=== PATIENT | male | born 1955 | race Caucasian/White ===

== ENCOUNTER 2017-03-29 11:16 | Inpatient (IN) | payer OTHER ==
[~2017-03-29] VITALS: Ht 177.8 cm; Wt 88.0 kg
--- NOTE | 2017-03-29 11:30 | NUR ---
PT BIB FAMILY C/O LOWER BACK PAIN S/P DISCECTOMY SX LAST MARCH 17, 2017, ALSO C/O NAUSEA AND VOMTING FOR A FEW DAYS. NOTED IN DISTRESS. FAMILY MEMBER AT BS FOR INFO. SEEN BY MD FOR EVAL. SAFETY AND COMFORT MEASURES PROVIDED. WILL MONITOR.
[2017-03-29] MEDS ORDERED: HYDROMORPHONE 1 MG/1 ML DISP.SYRIN ONE ×2 (11:38→13:14)
[2017-03-29] MEDS ORDERED: IV NS 0.9% 1,000 ML ONE (11:38)
--- NOTE | 2017-03-29 11:45 | NUR ---
IV ACCESS STARTED, BLOOD DRAWN FOR LABS. PT MEDICATED ORDERED.
[2017-03-29 11:57] LABS: BASOPHILS # (AUTO) 1.2 /CMM (0.0-0.2); BASOPHILS % (AUTO) 4.4 % (0.0-2.0); HEMATOCRIT 41 % (39-51); HEMOGLOBIN 13.3 g/dL (13.5-17.5); LYMPHOCYTES # (AUTO) 0.9 /CMM (0.8-4.8); LYMPHOCYTES % (AUTO) 3.5 % (20.0-44.0); MEAN CORPUSCULAR HEMOGLOBIN 30 PG (26.0-33.0); MEAN CORPUSCULAR HGB CONC 33 g/dl (31.0-36.0); MEAN CORPUSCULAR VOLUME 92 fL (80-96); MONOCYTES % (AUTO) 11.4 % (2.0-12.0); NEUTROPHILS # (AUTO) 21.1 /CMM (1.8-8.9); NEUTROPHILS % (AUTO) 80.7 % (43.0-81.0); PLATELET COUNT (AUTO) 235 /CMM (150-450); RDW COEFFICIENT OF VARIATION 12.8 (11.5-15.0); RED BLOOD CELL COUNT(AUTO) 4.43 MIL/uL (4.5-6.0); WHITE BLOOD COUNT (AUTO) 26.2 K/uL (4.3-11.0)
[2017-03-29] MEDS ORDERED: HYDROMORPHONE 1 MG/1 ML DISP.SYRIN IV ONE ×3 (12:00→17:30)
[2017-03-29] MEDS ORDERED: IV NS 0.9% 1,000 ML BAG IV ONE (12:00)
[2017-03-29 12:05] LABS: CALCIUM, SERUM 8.8 mg/dL (8.5-10.1); CREATININE 1.3 mg/dL (0.6-1.3); POTASSIUM 3.8 mmol/L (3.5-5.1)
--- NOTE | 2017-03-29 12:05 | NUR ---
PT IS UNABLE TO GIVE URINE SAMPLE AT THIS TIME.
[2017-03-29 12:12] LABS: ALBUMIN 3.6 g/dL (3.4-5.0); BILIRUBIN,DIRECT 0.1 mg/dL (0.0-0.2); BILIRUBIN,TOTAL 0.9 mg/dL (0.2-1.0); TOTAL PROTEIN, SERUM 6.9 g/dL (6.4-8.2)
--- NOTE | 2017-03-29 13:30 | NUR ---
XRAY DONE AT BS.
--- NOTE | 2017-03-29 13:44 | NUR ---
PAGED DR PATEL FOR ADMISSION
[2017-03-29] MEDS ORDERED: LEVOFLOXACIN (750 MG) 750 MG TABLET ONE (13:59)
[2017-03-29] MEDS ORDERED: IV SET PRIMARY 1 EA INFUS.SET MC ONE (14:00)
[2017-03-29] MEDS ORDERED: CEFTRIAXONE 1GM BAG (ER ONLY) 50 ML IV ONE (14:00)
[2017-03-29] MEDS ORDERED: CEFTRIAXONE 500 MG VIAL IV ONE (14:00)
[2017-03-29] MEDS ORDERED: LEVOFLOXACIN (750 MG) 750 MG TABLET PO SCH (14:00)
[2017-03-29] MEDS ORDERED: VENL75TA4 PO (14:08)
[2017-03-29] MEDS ORDERED: SIMV10TA6 PO (14:08)
[2017-03-29] MEDS ORDERED: PROP150T2 PO (14:08)
[2017-03-29] MEDS ORDERED: SERT100T PO (14:08)
[2017-03-29] MEDS ORDERED: CEFTRIAXONE 1 G in IV D5W 50 ML IV ONE (14:30)
--- NOTE | 2017-03-29 14:33 | NUR ---
Shreya reynolds in [facility] - 03/29/17 at 1433 by JASSI [id number] TELE
--- NOTE | 2017-03-29 14:33 | NUR ---
M/S 201
--- NOTE | 2017-03-29 14:54 | NUR ---
Report given to TIMO Guerin for [facility] MS 201
--- NOTE | 2017-03-29 15:12 | NUR ---
MS RN OPENING RECEIVED PATIENT A/OX4 DENIES SOB, DIFFICULTY BREATHING. STATES PAIN IS BETTER 04/04 AT THIS TIME BECAUSE HE WAS JUST MOVED. PATIENT AT BEDSIDE. MD PATEL AWARE OF ADMISSION. ALL NEEDS IN REACH, BED LOWERED AND LOCKED, RAILS UPX3 FOR SAFETY AND WILL ROUND Q2H OR LESS PER NEEDS.
[2017-03-29 15:15] VITALS: BP 115/55
--- NOTE | 2017-03-29 15:30 | NUR ---
MS RN NOTES PATIENT SLIGHT ELEVATED TEMP 99.3 ICE APPLIED AND REMOVED BLANKETS.
[2017-03-29 16:00] VITALS: BP 119/55
--- NOTE | 2017-03-29 16:09 | NUR ---
MS RN NOTES PATIENT IS IN TOO MUCH PAIN TO TURN AND VISUALIZE BACK SURGICAL SITE. WILL MEDICATE ORDERED ONCE MD ADMITS AND THEN ATTEMPT TO TURN PATIENT
[2017-03-29] MEDS ORDERED: MAGNESIUM HYDROXIDE 30 ML UDC PO PRN (16:30)
[2017-03-29] MEDS ORDERED: MAG HYDROX/AL HYDROX/SIMETH 30 ML UDC PO PRN (16:30)
[2017-03-29] MEDS ORDERED: ACETAMINOPHEN 325 MG TABLET PO PRN (16:30)
[2017-03-29] MEDS ORDERED: Z GUARD REMEDY 2 OZ OINT TP PRN (16:30)
--- NOTE | 2017-03-29 16:32 | NUR ---
MS RN NOTES PER MD PATEL ORDER A ONE TIME DOSE OF DILAUDID IV 1MG TO BE GIVEN NO SOONER THAN 1730
[2017-03-29] MEDS: PROPAFENONE HCL 150 MG TABLET PO SCH ×2 (17:19→21:00)
[2017-03-29] MEDS: ONDANSETRON HCL/PF 4 MG/2 ML VIAL IVP PRN (17:45)
[2017-03-29] MEDS: HYDROCODONE/APAP 5/325MG 1 EACH TABLET PO PRN (18:29)
--- NOTE | 2017-03-29 18:39 | NUR ---
MS RN NOTES MESSAGE TO DR PATEL PER PATIENT ASTRIDID DID NOT TOUCH HIM AND PATIENT UNABLE. PER MD HE WILL SEE PATIENT
--- NOTE | 2017-03-29 19:05 | NUR ---
MS RN CLOSING PATIENT DENIES SOB, DIFFICULTY BREATHING AND PAIN IS STILL UNCONTROLLED. MD AWARE AND WILL SEE PATIENT. IN THE MEANTIME ASSISTED WITH MORE NON PHARM MEASURES, GAVE ICE TO PATIENT BACK, ASSISTED WITH REPOSITIONING, TURNING LIGHTING DOWN, DISTRACTION AND LETTING PATIENT REST. CARE ENDORSED TO TIMO JIMENEZ AND UPDATED ON CARE PLAN. PATIENT WITH CALL LIGHT IN REACH, BED LOWERED AND LOCKED, RAILS UPX3 FOR SAFETY AND CARE GIVEN TO BARBARA GREENWOOD.
--- NOTE | 2017-03-29 19:10 | NUR ---
MS RN NOTES MD VISIT SEEN BY DR PATEL,WITH NEW ORDERS NOTED AND CARRIED OUT.
--- NOTE | 2017-03-29 19:20 | NUR ---
MS RN NOTES RECEIVED ON BED A/O X4,BREATHING REGULAR,NOT IN ANT FORM OF RESPIRATORY DISTRESS.O2 IN USED 2L/NC TO KEEP O2 SAT ABOVE 90%.SALINE LOCK INTACT AND PATENT ON LEFT HAND.S/P BACK SURGERY 2 WEEKS AGO.CLAIMED HE'S STILL IN PAIN 9/10 ON PAIN SCALE.SENT MESSAGE TO DR PATEL WITH ORDER TO INCREASE DILAUDID 2MG IV Q 4HOURS PRN FOR SEVERE PAIN NOTED AND CARRIED OUT
[2017-03-29] MEDS ORDERED: HYDROMORPHONE INJ 2 MG/ML DISP.SYRIN ONE (19:40)
[2017-03-29] MEDS: HYDROMORPHONE INJ 2 MG/ML DISP.SYRIN IV PRN (19:46)
--- NOTE | 2017-03-29 19:46 | NUR ---
MS RN NOTES PAIN MANAGEMENT NORCO IS NOT EFFECTIVE AN GIVEN AN HOUR AGO.MEDICATED WITH DILAUDID 2MG IVP ORDERED.
--- NOTE | 2017-03-29 19:50 | NUR ---
MS RN NOTES WENT DOWN BY BED TO RADIOLOGY FOR CT LUMBAR SPINE WITHOUT CONTRAST,REASON POST OP BACK PAIN
--- NOTE | 2017-03-29 19:55 | NUR ---
MS RN NOTES FAMILY MEMBER AT BEDSIDE.
[2017-03-29 20:00] VITALS: BP 112/67
--- NOTE | 2017-03-29 20:00 | NUR ---
MS RN NOTES CAME BACK FROM CT IN STABLE CONDITION.
--- NOTE | 2017-03-29 21:00 | NUR ---
MS RN NOTES DUE RYTHMOL 150MG PO FOR BP,HEART RATE HELD FOR LOW BP 112/67,HEART RATE 98. SAID TO HOLD TO THE CHOLESTEROL PILL.
[2017-03-29] MEDS: SIMVASTATIN 10 MG TABLET PO SCH (21:27)
[2017-03-29] MEDS ORDERED: DEXAMETHASONE SOD PHOSPHATE 10 MG/ML VIAL IV STA (22:13)
[2017-03-29] MEDS ORDERED: CEFTRIAXONE 2 G in IV D5W 100 ML IV SCH (22:30)
[2017-03-29] MEDS ORDERED: GABAPENTIN 300 MG CAPSULE ONE (22:51)
[2017-03-29] MEDS ORDERED: DEXAMETHASONE SOD PHOSPHATE 10 MG/ML VIAL ONE (22:51)
[2017-03-29] MEDS ORDERED: IV NS 0.9% 250 ML IV ONE (22:52)
[2017-03-29] MEDS ORDERED: CEFTRIAXONE 1 G VIAL ONE (22:52)
[2017-03-29] MEDS ORDERED: IV SET PRIMARY PUMP SET 1 EA INFUS.SET MC ONE (22:52)
[2017-03-29] MEDS ORDERED: SECONDARY IV SET 1 EA INFUS.SET MC ONE (22:52)
[2017-03-29] MEDS ORDERED: IV D5W 100 ML IV ONE (22:53)
[2017-03-29] MEDS: ZOLPIDEM TARTRATE 5 MG TABLET PO PRN (23:03)
[2017-03-29] MEDS: GABAPENTIN 300 MG CAPSULE PO SCH (23:03)
--- NOTE | 2017-03-29 23:03 | NUR ---
MS RN NOTES C/O INSOMNIA,AMBIEN 5MG PO GIVEN ORDERED.
--- NOTE | 2017-03-29 23:03 | NUR ---
MS RN NOTES STARTED ON NEURONTIN 300MG PO ORDERED.
--- NOTE | 2017-03-29 23:03 | NUR ---
MS RN NOTES GIVEN DECADRON 10MG IV STAT ORDER ONCE BY DR GUDELIA LORENZANA.
--- NOTE | 2017-03-29 23:33 | NUR ---
MS RN NOTES ROCEPHIN 2GM IV NON ADMIN,VERIFIED WITH GUDELIA LORENZANA DNP,WILL START TOMORROW.ROCEPHIN 1 GM IV ALREADY ADMINISTERED IN ER AT 1410.
--- NOTE | 2017-03-30 01:00 | NUR ---
MS RN NOTES SLEEPING,KEPT WARM AND COMFORTABLE.
[2017-03-30] MEDS ORDERED: HYDROMORPHONE INJ 2 MG/ML DISP.SYRIN ONE (03:44)
[2017-03-30] MEDS: HYDROMORPHONE INJ 2 MG/ML DISP.SYRIN IV PRN ×3 (03:50→13:19)
--- NOTE | 2017-03-30 03:50 | NUR ---
MS RN NOTES PAIN MANAGEMENT C/O LOWER BACK PAIN,MEDICATED WITH DILAUDID 2MG IVP ORDERED FOR SEVERE PAIN
--- NOTE | 2017-03-30 06:13 | NUR ---
MS RN NOTES ALREADY VOIDED PER URINAL ABOUT 550ML,URINE FOR URINALYSIS COLLECTED,WILL SEND TO LAB.PAIN MANAGEMENT EFFECTIVE.CT LUMBAR WITHOUT CONTRAST DONE WITH RESULT.GUDELIA LORENZANA DNP ALREADY CHECKED ON IT.ROCEPHIN 2GM IVPB TO START TODAY.IN NO ACUTE DISTRESS,AFEBRILE.CALL LIGHT IN REACH,NEEDS ATTENDED.WILL ENDORSE TO DAY NURSE FOR [place].
[2017-03-30 06:53] LABS: HEMATOCRIT 38 % (39-51); HEMOGLOBIN 12.6 g/dL (13.5-17.5); LYMPHOCYTES # (AUTO) 0.3 /CMM (0.8-4.8); LYMPHOCYTES % (AUTO) 1.2 % (20.0-44.0); MEAN CORPUSCULAR HEMOGLOBIN 31 PG (26.0-33.0); MEAN CORPUSCULAR HGB CONC 33 g/dl (31.0-36.0); MEAN CORPUSCULAR VOLUME 93 fL (80-96); MONOCYTES # (AUTO) 0.1 /CMM (0.1-1.30); MONOCYTES % (AUTO) 0.5 % (2.0-12.0); NEUTROPHILS % (AUTO) 98.3 % (43.0-81.0); PLATELET COUNT (AUTO) 195 /CMM (150-450); RDW COEFFICIENT OF VARIATION 13.6 (11.5-15.0); RED BLOOD CELL COUNT(AUTO) 4.07 MIL/uL (4.5-6.0); WHITE BLOOD COUNT (AUTO) 22.4 K/uL (4.3-11.0)
--- NOTE | 2017-03-30 07:00 | NUR ---
MS RN OPENING RECEIVED PATIENT A/OX4 STATES CONSTANT RADIATING LOWER BACK PAIN WHICH IS A LITTLE BETTER PER PATIENT WITH PAIN MANAGEMENT. PATIENT AWARE NEXT PAIN MEDICATION IS DUE AT 0750. ASSISTED PATIENT TO REPOSITION FOR INCREASED COMFORT AND ICE PRN FOR PAIN. ALL NEEDS IN REACH, OXYGEN ON FOR COMFORT WILL RECHECK ROOM AIR SAT TODAY. PATIENT STATES NO OTHER NEEDS AT THIS TIME. WITH CALL LIGHT IN REACH, BED LOWERED AND LOCKED, RAILS UPX3 FOR SAFETY WITH BED ALARM ON.
[2017-03-30 07:15] LABS: CALCIUM, SERUM 8.4 mg/dL (8.5-10.1); CREATININE 0.9 mg/dL (0.6-1.3); PHOSPHORUS 2.2 mg/dL (2.5-4.9)
[2017-03-30 08:00] VITALS: BP 114/67
--- NOTE | 2017-03-30 08:00 | NUR ---
MS RN NOTES PATIENT STATES NAUSEA WHEN HE EATS. PRN ZOFRAN GIVEN
[2017-03-30] MEDS: GABAPENTIN 300 MG CAPSULE PO SCH ×3 (08:02→16:02)
[2017-03-30] MEDS: SERTRALINE HCL 50 MG TABLET PO SCH (08:02)
[2017-03-30] MEDS: VENLAFAXINE 37.5 MG TABLET PO SCH (08:02)
[2017-03-30] MEDS: PROPAFENONE HCL 150 MG TABLET PO SCH ×4 (08:05→21:53)
[2017-03-30 08:06] VITALS: BP 114/67
[2017-03-30] MEDS: ONDANSETRON HCL/PF 4 MG/2 ML VIAL IVP PRN ×2 (08:08→13:41)
--- NOTE | 2017-03-30 09:45 | NUR ---
MS RN NOTES PATIENT RESTING COMFORTABLY. AWAKE TO LIGHT TOUCH
--- NOTE | 2017-03-30 10:58 | NUR ---
WOUND CARE CONSULT: PT SLEEPING AT THIS TIME AND PT'S (AT BEDSIDE) REFUSED WOUND/SKIN ASSESSMENT. DEFER TO MD. RECOMMEND SURGICAL CONSULT. WILL SEE PRN.
--- NOTE | 2017-03-30 11:06 | NUR ---
MS RN NOTES PATIENT RESTING COMFORTABLY. AWAKE TO LIGHT TOUCH. AT BEDSIDE
--- NOTE | 2017-03-30 11:30 | NUR ---
MS RN NOTES ASSISTING PATIENT TO TURN AND OFFLOAD TO PROTECT SKIN. PILLOWS GIVEN. PATIENT INSISTING TO STAY IN POSITION OF COMFORT. CONTINUING TO TRY AND REPOSITION PATIENT TO OFFLOAD
--- NOTE | 2017-03-30 12:11 | NUR ---
MS RN NOTES WOUND CULTURE OBTAINED AND URINE SAMPLE COLLECTED
[2017-03-30] MEDS ORDERED: K PHOS NEUTRAL 250 MG TABLET PO ONE (12:30)
--- NOTE | 2017-03-30 14:20 | NUR ---
ms rn notes md at bedside. ok to order ivf ns continuous 75/hr
[2017-03-30] MEDS ORDERED: IV NS 0.9% 1,000 ML IV PRN (14:30)
[2017-03-30] MEDS ORDERED: IV NS 0.9% 1,000 ML BAG IV PRN (14:30)
[2017-03-30] MEDS: CEFTRIAXONE 2 G in IV D5W 100 ML IV SCH (14:37)
[2017-03-30] MEDS: IV NS 0.9% 1,000 ML IV PRN (14:47)
--- NOTE | 2017-03-30 14:55 | NUR ---
ms rn notes per md cornelia dominguez to order phenergan im 50mg q8h prn for nausea as zofran is not working too well for patient
[2017-03-30] MEDS ORDERED: PROMETHAZINE HCL 50 MG/ML AMPUL IM PRN (15:00)
--- NOTE | 2017-03-30 15:10 | NUR ---
ms rn notes patient resting well and does not want any antiemetic at this time. ivf running as ordered
--- NOTE | 2017-03-30 15:26 | NUR ---
MS RN NOTES DR NGUYEN AT BEDSIDE. PER MD ORDER MRI LSPINE WITH CONTRAST
[2017-03-30 15:53] LABS: APPEARANCE,URINE SL CLOUDY (CLEAR); BILIRUBIN,URINE NEGATIVE (NEGATIVE); BLOOD, URINE NEGATIVE Ery/uL (NEGATIVE); COLOR,URINE YELLOW (YELLOW); KETONES,URINE NEGATIVE (NEGATIVE); LEUKOCYTE ESTERASE ,URINE NEGATIVE (NEGATIVE); NITRITE, URINE NEGATIVE (NEGATIVE); PROTEIN,URINE TRACE mg/dl (NEGATIVE); UGLUCOSE NEGATIVE (NEGATIVE); UROBILINOGEN,URINE 0.2 EU/dL (0.2)
--- NOTE | 2017-03-30 15:53 | NUR ---
TEXTED DR. QUINTERO FOR MRI APPROVAL.
[2017-03-30 16:00] VITALS: BP 112/68
[2017-03-30 16:01] LABS: BACTERIA,URINE None seen /HPF (None Seen); RBC,URINE 0-2 /HPF (0-2); SQUAMOUS EPITHELIAL CELL,UR Rare /HPF (None Seen); WBC,URINE 0-2 /HPF (0-3)
--- NOTE | 2017-03-30 16:30 | NUR ---
MS RN NOTES PATIENT IS SLEEPING AWAKE TO LIGHT TOUCH. NO S/S DISTRESS
--- NOTE | 2017-03-30 18:54 | NUR ---
MS RN CLOSING PATIENT STABLE PAIN CONTROLLED WITH PRN MEDICATIONS. NAUSEA CONTROLLED WITH PRN MEDICATIONS. PATIENT IS RESTING WELL AT THIS TIME NO COMPLICATIONS. PATIENT WITH ALL NEEDS IN REACH, BED LOWERED AND LOCKED, RAILS UPX3 FOR SAFETY AND WILL ROUND Q2H OR LESS PER NEEDS. CARE ENDORSED TO TIMO SANCHEZ
--- NOTE | 2017-03-30 19:15 | NUR ---
MS RN NOTES RECEIVED PT IN BED, ASLEEP AT THIS TIME, AROUSES EASILY. A/O X 4. VERBALLY RESPONSIVE. NO DISTRESS, NO SOB NOTED AT THIS TIME. RESPIRATION IS EVEN AND UNLABORED. ABDOMEN IS SOFT AND NON DISTENDED. NO C/O N/V AT THIS TIME. IV SITE ON LEFT HAND INTACT AND PATENT, NO S/S OF INFILTRATION NOTED. IVF INFUSING WELL. NO C/O PAIN OR DISCOMFORT AT THIS TIME. ALL NEEDS ATTENDED. KEPT COMFORTABLE. CALL LIGHT WITHIN REACH. WILL CONTINUE TO MONITOR.
[2017-03-30 20:00] VITALS: BP 122/63
[2017-03-30] MEDS: SIMVASTATIN 10 MG TABLET PO SCH (21:53)
[2017-03-30 22:00] VITALS: BP 122/63
--- NOTE | 2017-03-31 01:11 | NUR ---
LEFT HAND IV LINE LEAKING, REMOVED PRESSURE APPLIED, NO BLEEDING NOTED AT THIS TIME. INSERTED IV ON LEFT HAND 20 G X 1 ATTEMPT, WITH GOOD VENOUS RETURN, PT NICHOLAS WELL.
[2017-03-31] MEDS: IV NS 0.9% 1,000 ML IV PRN (04:02)
--- NOTE | 2017-03-31 06:10 | NUR ---
ENDORSED ACCORDINGLY TO TIMO AGUIRRE FOR [facility].
--- NOTE | 2017-03-31 06:16 | NUR ---
MS RN NOTES PT IN BED, RESTING COMFORTABLY AT THIS TIME, AROUSES EASILY. A/O X 4. VERBALLY RESPONSIVE. NO DISTRESS, NO SOB NOTED AT THIS TIME. RESPIRATION IS EVEN AND UNLABORED. ABDOMEN IS SOFT AND NON DISTENDED. NO C/O N/V AT THIS TIME. IV SITE ON LEFT HAND G#20 INTACT AND PATENT, NO S/S OF INFILTRATION NOTED. IVF INFUSING WELL. NO C/O PAIN OR DISCOMFORT AT THIS TIME. ALL NEEDS ATTENDED AND MET. KEPT COMFORTABLE. SAFETY PRECAUTIONS OBSERVED. CALL LIGHT WITHIN REACH. WILL CONTINUE TO MONITOR.
[2017-03-31 07:18] LABS: BASOPHILS % (AUTO) 0.1 % (0.0-2.0); EOSINOPHILS % (AUTO) 0.1 % (0.0-6.0); HEMATOCRIT 34 % (39-51); HEMOGLOBIN 11.6 g/dL (13.5-17.5); LYMPHOCYTES # (AUTO) 0.6 /CMM (0.8-4.8); MEAN CORPUSCULAR HEMOGLOBIN 31 PG (26.0-33.0); MEAN CORPUSCULAR HGB CONC 34 g/dl (31.0-36.0); MEAN CORPUSCULAR VOLUME 92 fL (80-96); MONOCYTES # (AUTO) 0.4 /CMM (0.1-1.30); MONOCYTES % (AUTO) 2.8 % (2.0-12.0); NEUTROPHILS # (AUTO) 14.2 /CMM (1.8-8.9); PLATELET COUNT (AUTO) 198 /CMM (150-450); RDW COEFFICIENT OF VARIATION 13.4 (11.5-15.0); WHITE BLOOD COUNT (AUTO) 15.3 K/uL (4.3-11.0)
--- NOTE | 2017-03-31 07:25 | NUR ---
MS RN OPENING NOTES PATIENT RECEIVED ASLEEP IN BED, EASILY AWAKENS. A/O X 4, NO C/O PAIN OR DISCOMFORTS AT THIS TIME. ON ROOM AIR, RESPIRATION IS EVEN AND UNLABORED. ABDOMEN IS SOFT AND NON DISTENDED. NO C/O N/V AT THIS TIME. IV ACCESS ON LEFT HAND G#20 INTACT AND PATENT WITH IVF OF NS @ 75ML/HR INFUSING WELL, NO S/S OF INFILTRATION OR PHLEBITIS NOTED. BED IN LOW POSITION AND LOCKED. CALL LIGHT WITHIN REACH. WILL MAINTAIN ALL SAFETY MEASURES. WILL CONTINUE TO MONITOR ACCORDINGLY.
[2017-03-31 07:30] LABS: CALCIUM, SERUM 8.3 mg/dL (8.5-10.1); CREATININE 0.7 mg/dL (0.6-1.3); PHOSPHORUS 1.9 mg/dL (2.5-4.9); POTASSIUM 4.1 mmol/L (3.5-5.1)
[2017-03-31 08:00] VITALS: BP_SYST 123; BP_DIAS 74; BP_DIAS 92
--- NOTE | 2017-03-31 08:00 | NUR ---
RN NOTES CALLED AND SPOKE TO ANIN OF RADIOLOGY DEPARTMENT AND ASKED WHETHER ITS OK TO GIVE PT ALL HIS MORNING MEDICATION EVEN THOUGH HE'S NPO AND GOING FOR MRI OF SPINE. HE SAID IT'S OK TO GIVE.
[2017-03-31] MEDS: GABAPENTIN 300 MG CAPSULE PO SCH ×3 (08:29→17:03)
[2017-03-31] MEDS: PROPAFENONE HCL 150 MG TABLET PO SCH ×4 (08:29→21:20)
[2017-03-31] MEDS: VENLAFAXINE 37.5 MG TABLET PO SCH (08:29)
[2017-03-31] MEDS: SERTRALINE HCL 50 MG TABLET PO SCH (08:29)
[2017-03-31] MEDS: HYDROMORPHONE INJ 2 MG/ML DISP.SYRIN IV PRN ×2 (09:16→13:21)
--- NOTE | 2017-03-31 09:20 | NUR ---
RN NOTES PATIENT WENT FOR MRI OF SPINE VIA WHEELCHAIR.
--- NOTE | 2017-03-31 10:06 | NUR ---
RN NOTES PATIENT CAME BACK FROM MRI OF SPINE BUT RADIOLOGIST SAID THAT SHE'S UN-ABLE TO COMPLETE THE TEST BEC. PT'S WAS ON A LOT OF PAIN. SHE SAID THAT SHE WILL COMPLETE THE TEST AFTER LUNCH AFTER GIVING PAIN MEDICATION. WILL CONTINUE TO MONITOR.
--- NOTE | 2017-03-31 11:08 | NUR ---
RN NOTES PATIENT MOVED FROM ROOM 200 TO ROOM 204-1. WILL CONTINUE TO MONITOR
--- NOTE | 2017-03-31 11:21 | NUR ---
RN NOTES SEEN AND EVALUATED BY DR PATEL WITH ORDER TO DECREASE IVF OF NS @ 75ML/HR TO 50 ML/HR. ALL ABNORMAL BLOOD LEVELS MADE AWARE. WILL CONTINUE TO MONITOR.
[2017-03-31] MEDS ORDERED: K PHOS NEUTRAL 250 MG TABLET PO ONE (11:30)
[2017-03-31] MEDS: AMPICILLIN SODIUM 2 GM in IV NS 0.9% 100 ML IV SCH ×2 (13:42→17:03)
--- NOTE | 2017-03-31 14:04 | NUR ---
RN NOTES PATIENT WENT DOWN AGAIN TO RADIOLOGY DEPT VIA WHEEL CHAIR TO COMPLETE MRI OF SPINE THAT WASN'T COMPLETED THIS MORNING. HE WAS ACCOMPANIED BY RADIOLOGIST AND .
[2017-03-31] MEDS ORDERED: SECONDARY IV SET 1 EA INFUS.SET MC ONE ×2 (14:15→15:08)
--- NOTE | 2017-03-31 14:38 | NUR ---
RN NOTES PATIENT CAME BACK FROM MRI OF SPINE AND ABLE TO COMPLETE THE EXAMINATION. WILL FOLLOW-UP RESULTS.
[2017-03-31] MEDS: CEFTRIAXONE 2 G in IV D5W 100 ML IV SCH (15:33)
[2017-03-31 16:00] VITALS: BP 116/77
[2017-03-31] MEDS ORDERED: GADOVERSETAMIDE 5 MMOL/10 ML VIAL IJ ONE (17:09)
--- NOTE | 2017-03-31 19:15 | NUR ---
MS RN NOTES RECEIVED PT IN BED, AWAKE, WATCHING TV AT THIS TIME. A/O X 4. VERBALLY RESPONSIVE. NO DISTRESS, NO SOB NOTED AT THIS TIME. RESPIRATION IS EVEN AND UNLABORED. ABDOMEN IS SOFT AND NON DISTENDED. NO C/O N/V AT THIS TIME. IV SITE ON LEFT HAND INTACT AND PATENT, NO S/S OF INFILTRATION NOTED. IVF INFUSING WELL. NO C/O PAIN OR DISCOMFORT AT THIS TIME. ALL NEEDS ATTENDED. KEPT COMFORTABLE. CALL LIGHT WITHIN REACH. WILL CONTINUE TO MONITOR.
--- NOTE | 2017-03-31 19:16 | NUR ---
MS RN CLOSING NOTES PATIENT RESTING IN BED A/O X 4, NO SIGNIFICANT CHANGES IN STATUS NOTED DURING SHIFT. VISITED BY FAMILY DURING THE DAY. ALL NEEDS AND CARE PROVIDED WELL. MAINTAINED ON ROOM AIR, NO SOB NOTED. ABDOMEN IS SOFT AND NON DISTENDED, NO C/O N/V AT THIS TIME. IV ACCESS ON LEFT HAND G#20 INTACT AND PATENT WITH IVF OF NS @ 50ML/HR INFUSING WELL, NO S/S OF INFILTRATION OR PHLEBITIS NOTED. BED IN LOW POSITION AND LOCKED. CALL LIGHT WITHIN REACH. ALL SAFETY MEASURES MAINTAINED. ENDORSED TO SOFTWARE PROJECT ENGINEER NURSE FOR [facility].
[2017-03-31 20:00] VITALS: BP 120/61
[2017-03-31] MEDS: SIMVASTATIN 10 MG TABLET PO SCH (21:20)
[2017-03-31 22:00] VITALS: BP 120/61
[2017-04-01] MEDS: AMPICILLIN SODIUM 2 GM in IV NS 0.9% 100 ML IV SCH ×5 (00:40→23:24)
[2017-04-01] MEDS: HYDROMORPHONE INJ 2 MG/ML DISP.SYRIN IV PRN ×2 (03:49→18:39)
[2017-04-01] MEDS: IV NS 0.9% 1,000 ML IV PRN (06:35)
--- NOTE | 2017-04-01 07:04 | NUR ---
MS RN NOTES PT IN BED, RESTING COMFORTABLY AT THIS TIME, AROUSES EASILY. A/O X 4. VERBALLY RESPONSIVE. NO DISTRESS, NO SOB NOTED AT THIS TIME. RESPIRATION IS EVEN AND UNLABORED. ABDOMEN IS SOFT AND NON DISTENDED. NO C/O N/V AT THIS TIME. IV SITE ON LEFT HAND G#20 INTACT AND PATENT, NO S/S OF INFILTRATION NOTED. IVF INFUSING WELL. NO C/O PAIN OR DISCOMFORT AT THIS TIME. ALL NEEDS ATTENDED AND MET. KEPT COMFORTABLE. SAFETY PRECAUTIONS OBSERVED. CALL LIGHT WITHIN REACH. WILL ENDORSE TO NEXT SHIFT FOR [facility].
--- NOTE | 2017-04-01 07:12 | NUR ---
MS RN OPENING NOTES PATIENT RECEIVED AWAKE IN BED IN NO ACUTE SIGNS OF DISTRESS. A/O X 4, NO C/O PAIN, N & V AT THIS TIME. ON ROOM AIR, RESPIRATION IS EVEN AND UNLABORED. IV ACCESS ON LEFT HAND G#20 INTACT AND PATENT WITH IVF OF NS @ 50ML/HR INFUSING WELL, NO S/S OF INFILTRATION NOTED. BED IN LOW POSITION AND LOCKED. CALL LIGHT WITHIN REACH. WILL MAINTAIN ALL SAFETY MEASURES AND WILL CONTINUE TO MONITOR PT ACCORDINGLY
[2017-04-01 08:00] VITALS: BP 126/79
[2017-04-01] MEDS: PROPAFENONE HCL 150 MG TABLET PO SCH ×4 (08:33→23:24)
[2017-04-01] MEDS: GABAPENTIN 300 MG CAPSULE PO SCH ×3 (08:34→17:03)
[2017-04-01] MEDS: SERTRALINE HCL 50 MG TABLET PO SCH (08:34)
[2017-04-01] MEDS: VENLAFAXINE 37.5 MG TABLET PO SCH (08:34)
[2017-04-01 10:11] LABS: BASOPHILS % (AUTO) 0.4 % (0.0-2.0); EOSINOPHILS # (AUTO) 0.1 /CMM (0.0-0.7); EOSINOPHILS % (AUTO) 1.3 % (0.0-6.0); HEMATOCRIT 33 % (39-51); HEMOGLOBIN 11.1 g/dL (13.5-17.5); LYMPHOCYTES # (AUTO) 0.9 /CMM (0.8-4.8); LYMPHOCYTES % (AUTO) 9.8 % (20.0-44.0); MEAN CORPUSCULAR HEMOGLOBIN 31 PG (26.0-33.0); MEAN CORPUSCULAR HGB CONC 34 g/dl (31.0-36.0); MEAN CORPUSCULAR VOLUME 91 fL (80-96); MONOCYTES # (AUTO) 0.5 /CMM (0.1-1.30); MONOCYTES % (AUTO) 5.5 % (2.0-12.0); PLATELET COUNT (AUTO) 213 /CMM (150-450); RDW COEFFICIENT OF VARIATION 13.6 (11.5-15.0); RED BLOOD CELL COUNT(AUTO) 3.59 MIL/uL (4.5-6.0); WHITE BLOOD COUNT (AUTO) 9.6 K/uL (4.3-11.0)
[2017-04-01] MEDS: HYDROCODONE/APAP 5/325MG 1 EACH TABLET PO PRN (10:16)
--- NOTE | 2017-04-01 10:16 | NUR ---
RN NOTES PATIENT COMPLAINTS OF HEADACHE WITH INTENSITY OF 6/10 AFTER AMBULATING WITH PT. NORCO 5/325MG GIVEN. WILL MONITOR EFFECTIVENESS OF MED.
[2017-04-01 10:17] LABS: CREATININE 0.8 mg/dL (0.6-1.3); POTASSIUM 3.5 mmol/L (3.5-5.1)
--- NOTE | 2017-04-01 11:50 | NUR ---
RN NOTES DR PATEL SEEN AND VISITED PT. INFORMED ME THAT DR YARITZA NGUYEN SHOULD BE CONTACTED REGARDING PT'S MRI RESULTS. CALLED CLINIC OF DR NGUYEN AND SPOKE TO ADVANCE AGENT TRISH COOPER THAT SHE FORWARDED THE RESULTS ALREADY TO DR NGUYEN. PT AND MADE AWARE.
[2017-04-01] MEDS ORDERED: GADOVERSETAMIDE 5 MMOL/10 ML VIAL IJ ONE (12:02)
--- NOTE | 2017-04-01 13:33 | NUR ---
RN NOTES DR CHEEMA CAME AND EVALUATED PT, SAME EXPLAINED MRI RESULTS TO PATIENT AND PT VERBALIZED UNDERSTANDING.
[2017-04-01] MEDS: CEFTRIAXONE 2 G in IV D5W 100 ML IV SCH (14:53)
[2017-04-01] MEDS ORDERED: K PHOS NEUTRAL 250 MG TABLET PO ONE (15:30)
--- NOTE | 2017-04-01 15:35 | NUR ---
RN NOTES MD AWARE OF PT'S LOW LEVEL OF PHOSPHOROUS 2.2, ORDERED NEUTRA PHOS K TAB 500MG. ORDERED CARRIED OUT.
[2017-04-01 16:00] VITALS: BP 124/81
--- NOTE | 2017-04-01 19:05 | NUR ---
MS RN CLOSING NOTES PATIENT AWAKE AND WATCHING TV IN BED. A/O X 4, VERBALLY RESPONSIVE WITH C/O PAIN ON LOWER BACK WITH INTENSITY OF 9/10, PRN DILAUDID 2MG IVP GIVEN. ALL NEEDS AND CARE PROVIDED WELL. ON ROOM AIR, BREATHING EVEN WITH NO SOB NOTED. ABDOMEN IS SOFT AND NON DISTENDED, NO C/O N/V DURING THE DAY. IV ACCESS ON LEFT HAND G#20 INTACT AND PATENT WITH IVF OF NS @ 50ML/HR INFUSING WELL, NO S/S OF INFILTRATION NOTED. BED IN LOW POSITION AND LOCKED. CALL LIGHT WITHIN REACH. ALL SAFETY MEASURES MAINTAINED. WILL ENDORSED TO METAL WINDOW SCREEN ASSEMBLER NURSE FOR [facility].
[2017-04-01 20:00] VITALS: BP 117/82
--- NOTE | 2017-04-01 20:20 | NUR ---
MSRN SLEEPING APPEARS COMFORTABLE. PROVIDED QUIET ENVI.
[2017-04-01] MEDS: SIMVASTATIN 10 MG TABLET PO SCH (23:24)
[2017-04-01] MEDS: ZOLPIDEM TARTRATE 5 MG TABLET PO PRN (23:32)
--- NOTE | 2017-04-01 23:47 | NUR ---
MSRN LATE DUE MEDS ADMINISTERED, JUST WOKE UP. BRP, VOIDED FREELY. LOWER BACK PAIN TOLERABLE FOR NOW. REQUESTED TO HAVE AMBIEN . GIVEN. TRYING TO GO BACK TO SLEEP.
--- NOTE | 2017-04-02 06:10 | NUR ---
MSRN IV OUT, RESTARTED 24 GAUGE ON LEFT FA WITH GOOD BLOOD RETURN. IVF CONTINUED. AMPICILLIN ON PROGRESS.
[2017-04-02 06:32] LABS: BASOPHILS # (AUTO) 0.1 /CMM (0.0-0.2); BASOPHILS % (AUTO) 0.8 % (0.0-2.0); EOSINOPHILS # (AUTO) 0.3 /CMM (0.0-0.7); EOSINOPHILS % (AUTO) 3.4 % (0.0-6.0); HEMATOCRIT 35 % (39-51); HEMOGLOBIN 11.8 g/dL (13.5-17.5); LYMPHOCYTES # (AUTO) 1.4 /CMM (0.8-4.8); LYMPHOCYTES % (AUTO) 17.9 % (20.0-44.0); MEAN CORPUSCULAR HEMOGLOBIN 31 PG (26.0-33.0); MEAN CORPUSCULAR HGB CONC 34 g/dl (31.0-36.0); MEAN CORPUSCULAR VOLUME 92 fL (80-96); MONOCYTES # (AUTO) 0.5 /CMM (0.1-1.30); MONOCYTES % (AUTO) 6.2 % (2.0-12.0); NEUTROPHILS # (AUTO) 5.5 /CMM (1.8-8.9); NEUTROPHILS % (AUTO) 71.7 % (43.0-81.0); PLATELET COUNT (AUTO) 258 /CMM (150-450); RDW COEFFICIENT OF VARIATION 13.5 (11.5-15.0); RED BLOOD CELL COUNT(AUTO) 3.82 MIL/uL (4.5-6.0); WHITE BLOOD COUNT (AUTO) 7.7 K/uL (4.3-11.0)
--- NOTE | 2017-04-02 06:40 | NUR ---
MSRN VERBALIZES SEVERE LOWER BACK PAIN, DILAUDED 2MG IVP ADMINISTERED. BEDREST INSTRUCTED.
[2017-04-02 06:51] LABS: CALCIUM, SERUM 8.2 mg/dL (8.5-10.1); CREATININE 0.8 mg/dL (0.6-1.3); PHOSPHORUS 2.7 mg/dL (2.5-4.9); POTASSIUM 3.4 mmol/L (3.5-5.1)
[2017-04-02] MEDS: AMPICILLIN SODIUM 2 GM in IV NS 0.9% 100 ML IV SCH ×2 (06:52→11:04)
[2017-04-02] MEDS: HYDROMORPHONE INJ 2 MG/ML DISP.SYRIN IV PRN (06:53)
--- NOTE | 2017-04-02 07:05 | NUR ---
RN INITIAL NOTE REPORT RECEIVED AT THE BEDSIDE. PATIENT IS RESTING COMFORTABLY IN BED. NO SOB OR DISTRESS NOTED AT THIS TIME. PATIENT REPORTS TOLERABLE PAIN AFTER MORPHINE ADMINISTRATION. BED IN A LOW POSITION, CALL LIGHT WITHIN PATIENT REACH. WILL CONTINUE TO MONITOR.
[2017-04-02 08:00] VITALS: BP 136/67
[2017-04-02] MEDS: PROPAFENONE HCL 150 MG TABLET PO SCH ×2 (08:18→12:09)
[2017-04-02] MEDS: GABAPENTIN 300 MG CAPSULE PO SCH ×2 (08:18→12:09)
[2017-04-02] MEDS: VENLAFAXINE 37.5 MG TABLET PO SCH (08:18)
[2017-04-02] MEDS: SERTRALINE HCL 50 MG TABLET PO SCH (08:19)
[2017-04-02] MEDS ORDERED: POTASSIUM CHLORIDE 20 MEQ TAB.PRT.SR PO ONE (10:30)
[2017-04-02] MEDS: HYDROCODONE/APAP 5/325MG 1 EACH TABLET PO PRN (11:04)
[2017-04-02] MEDS ORDERED: DOCU-25 PO (12:27)
--- NOTE | 2017-04-02 13:30 | NUR ---
MS TEA TREE FARMER NOTE DISCHARGE INSTRUCTIONS GIVEN TO THE PATIENT AND FAMILY AND ABLE TO UNDERSTAND. ALL PAPERWORK SIGNED AND BELONGINGS ACCOUNTED FOR. PRESCRIPTIONS GIVEN TO PATIENT AND HE UNDERSTANDS ADMINISTRATION. VITAL SIGNS CHECKED AND RECORDED. IV DISCONNECTED AND PRESSURE APPLIED, NO BLEEDING NOTED AT THE SITE. FLU AND PNEUMONIA VACCINES NOT GIVEN PATIENT IS <65 AND OUT OF SEASON. PATIENT LEFT IN STABLE CONDITION, VIA WHEELCHAIR. NO SOB OR DISTRESS NOTED. PATIENT REPORTS TOLERABLE PAIN. PATIENT DISCHARGED TO HOME WITH . Addendum: 04/02/17 at 1333 by SALOMÓN PETERSON RN PICTURES OF SKIN NOT NEEDED THEY WERE TAKEN LESS THAN 24HOURS AGO.
== END 2017-04-02 13:35 | disposition home or self-care (01) | DRG 552 ==
LOC: ER 11:17 → MEDSG2 14:49
PROVIDERS: ADMIT Family Medicine; ATTEND Family Medicine
DX: M51.27 Other intervertebral disc displacement, lumbosacral region (principal); D72.829 Elevated white blood cell count, unspecified; E78.5 Hyperlipidemia, unspecified; I48.91 Unspecified atrial fibrillation; I10 Essential (primary) hypertension; F41.9 Anxiety disorder, unspecified; F32.9 Major depressive disorder, single episode, unspecified; Z98.890 Other specified postprocedural states; Z79.899 Other long term (current) drug therapy
CPT/HCPCS: 36415; 71010-TC; 72131-TC; 72158-TC; 80048-TC; 80061-TC; 80076-TC; 81000-TC; 83690-TC; 83735-TC; 84100-TC; 85025-TC; 85652-TC; 87040-TC; 87070-TC; 87081-TC; 87086-TC; 97001-TC; A4606; A9579; J0290; J0696; J1100; J1170; J2405; J2550; J7030; J7050; J7060; Z7610

== ENCOUNTER 2017-07-09 16:43 | Emergency (ER) | payer SELFPAY ==
[~2017-07-09] VITALS: Ht 177.8 cm; Wt 86.2 kg
[~2017-07-09 16:43] MED LIST: DOCU-25 PO; PROP150T2 PO; SERT100T PO; SIMV10TA6 PO; VENL75TA4 PO
--- NOTE | 2017-07-09 17:10 | NUR ---
PT came in for constipation x 3 days, on percocet with no stool softeners. Seen by MD for eval. IV access started. facility technician at for blood draw. Safety and comfort measures provided. Will monitor.
[2017-07-09] MEDS ORDERED: IV NS 0.9% 1,000 ML BAG IV ONE (17:30)
[2017-07-09 17:34] LABS: BASOPHILS # (AUTO) 0.2 /CMM (0.0-0.2); BASOPHILS % (AUTO) 1.2 % (0.0-2.0); EOSINOPHILS % (AUTO) 0.2 % (0.0-6.0); HEMATOCRIT 37 % (39-51); HEMOGLOBIN 12.1 g/dL (13.5-17.5); LYMPHOCYTES # (AUTO) 0.9 /CMM (0.8-4.8); LYMPHOCYTES % (AUTO) 6.7 % (20.0-44.0); MEAN CORPUSCULAR HEMOGLOBIN 28 PG (26.0-33.0); MEAN CORPUSCULAR HGB CONC 33 g/dl (31.0-36.0); MEAN CORPUSCULAR VOLUME 84 fL (80-96); MONOCYTES # (AUTO) 0.2 /CMM (0.1-1.30); MONOCYTES % (AUTO) 1.1 % (2.0-12.0); NEUTROPHILS # (AUTO) 12.6 /CMM (1.8-8.9); NEUTROPHILS % (AUTO) 90.8 % (43.0-81.0); PLATELET COUNT (AUTO) 369 /CMM (150-450); RDW COEFFICIENT OF VARIATION 13.1 (11.5-15.0); RED BLOOD CELL COUNT(AUTO) 4.34 MIL/uL (4.5-6.0); WHITE BLOOD COUNT (AUTO) 13.9 K/uL (4.3-11.0)
[2017-07-09 17:44] LABS: CALCIUM, SERUM 9.5 mg/dL (8.5-10.1); CREATININE 0.9 mg/dL (0.6-1.3); POTASSIUM 3.5 mmol/L (3.5-5.1)
--- NOTE | 2017-07-09 17:45 | NUR ---
PT TAKEN FOR XRAY.
[2017-07-09] MEDS ORDERED: MAGNESIUM CITRATE 296 ML BOTTLE PO ONE (18:30)
--- NOTE | 2017-07-09 18:35 | NUR ---
PT MEDICATED ORDERED. REQUESTS TO BE ON THE TOILET- ASSISTED SAFELY.
[2017-07-09 19:29] VITALS: BP 129/67
--- NOTE | 2017-07-09 19:29 | NUR ---
IV removed. Catheter intact and site benign. Pressure and 4x4 applied to site. No bleeding noted. Patient discharged to home in stable condition. Written and verbal after care instructions given. Patient verbalizes understanding of instruction. ambulatory with a steady gait noted.
== END 2017-07-09 19:30 | disposition home or self-care (01) ==
LOC: ER 16:45
DX: K59.00 Constipation, unspecified (principal); D72.829 Elevated white blood cell count, unspecified; F10.10 Alcohol abuse, uncomplicated; I48.91 Unspecified atrial fibrillation; Z98.890 Other specified postprocedural states
CPT/HCPCS: 36415; 74020; 80048; 85025; 96360; 99285; A4606; J7030; Z7610